=== PATIENT | female | born 2000 | race African-American/Black ===

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

== ENCOUNTER 2021-10-27 23:24 | Emergency (ER) | payer MEDICAID ==
[~2021-10-27] VITALS: Ht 160 cm; Wt 80.6 kg
[2021-10-27 23:31] VITALS: BP 144/88
== END 2021-10-28 00:24 | disposition left against medical advice (07) ==
LOC: ER 23:24
DX: Z53.21 Procedure and treatment not carried out due to patient leaving prior to being seen by health care provider (principal)